=== PATIENT | female | born 1975 | race Caucasian/White ===

== ENCOUNTER 2019-01-31 19:25 | Emergency (ER) | payer MEDICAID ==
[~2019-01-31] VITALS: Ht 162.6 cm; Wt 78.5 kg
[2019-01-31 19:38] VITALS: Ht 162.6 cm; Wt 78.5 kg
[2019-01-31 20:57] LABS: CALCIUM 8.8 mg/dL (8.5-10.1); CARBON DIOXIDE 30.2 mmol/L (21-32); CHLORIDE SERUM 104 mmol/L (98-107); CREATININE SERUM 0.7 mg/dL (0.6-1.0); GFR1 > 60 mL/min; GLUCOSE SERUM 87 mg/dL (74-106); POTASSIUM SERUM 4.4 mmol/L (3.5-5.1); SODIUM SERUM 140 mmol/L (136-145)
[2019-01-31 21:01] LABS: BASOPHIL % 0.6 % (0-2); PLATELET COUNT 313 x10^3mcL (130-400); RED CELL DISTRIBUTION WIDTH 13.4 % (11.5-14.5)
[2019-01-31 21:02] LABS: ALBUMIN 3.7 g/dL (3.4-5.0); ALKALINE PHOSPHATASE 68 U/L (46-116); ALT/SGPT 23 U/L (14-59); AST/SGOT 18 U/L (15-37); BILIRUBIN TOTAL 0.2 mg/dL (0.20-1.00)
[2019-01-31 23:24] VITALS: BP 100/59
== END 2019-01-31 23:24 | disposition home or self-care (01) ==
LOC: ED 19:25
DX: M54.5 Low back pain (principal); M62.838 Other muscle spasm
CPT/HCPCS: 36415

== ENCOUNTER 2019-05-21 11:37 | Emergency (ER) | payer MEDICAID ==
[~2019-05-21] VITALS: Ht 162.6 cm; Wt 78.9 kg
[2019-05-21 12:14] VITALS: Ht 162.6 cm; Wt 78.9 kg
[2019-05-21 12:51] VITALS: BP 111/71
== END 2019-05-21 12:51 | disposition home or self-care (01) ==
LOC: ED 11:37
DX: B34.9 Viral infection, unspecified (principal)
CPT/HCPCS: Q0162

== ENCOUNTER 2019-05-25 20:48 | Emergency (ER) | payer MEDICAID ==
[~2019-05-25] VITALS: Ht 162.6 cm; Wt 79.4 kg
[2019-05-25 20:56] VITALS: Ht 162.6 cm; Wt 79.4 kg
[2019-05-25 21:14] VITALS: BP 126/69
== END 2019-05-25 21:14 | disposition home or self-care (01) ==
LOC: ED 20:48
DX: J00 Acute nasopharyngitis [common cold] (principal); R05 Cough; R06.02 Shortness of breath; R50.9 Fever, unspecified